=== PATIENT | male | born 1990 | race Caucasian/White ===

== ENCOUNTER 2025-01-16 17:53 | Emergency (ER) | payer BC, SELFPAY ==
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
--- OUTSIDE RECORDS SUMMARY | 2025-01-16 17:56 | XMS_ITS | Clinical Summary ---
Author Organization [facility] [place] [address] [facility] lto Address [address] [place] [address] Care Team Providers Care Business Objects Developer Name Role Phone Jeramie Paredes MD Primary Care Provider [phone] Allergies No known active allergies Medications acetaminophen (TYLENOL) 325 mg tablet take 1 tablet by oral route every 12 hours as needed 0 0 6 Active Additional Information Patient not taking.Reported on 08/03/2024 albuterol HFA (ProAir HFA) 90 mcg/actuation inhaler Inhale 2 puffs every 4 (four) hours as needed for wheezing 1 each 6 5 Active escitalopram (LEXAPRO) 5 mg tablet TAKE 1 TABLET(5 MG) BY MOUTH DAILY 30 tablet 1 5 Active Active Problems Problem Noted Date Diagnosed Date Urinary frequency 08/14/2024 Assessment & Plan (08/14/2024 11:09 AM CDT): COurse of doxycycline given recurrent sypmtosm of previously documented STI with fiancee. Lipid screening 08/14/2024 Assessment & Plan (08/14/2024 11:09 AM CDT): Lipid pending and will robin response. Generalized anxiety disorder 08/14/2024 Assessment & Plan (08/14/2024 11:09 AM CDT): Continues on lexapro and will montir erpsonse. Reviewed sleep pattern and will continue to follow response. Annual physical exam 08/14/2024 Assessment & Plan (08/14/2024 11:10 AM CDT): Focus of exam si prevnetative in nature. Reviwed and remains very active. Reviewed sun/skin cancer screening. Reviewed colon/prostate. No early indications. Congrautalte on aerobci fitness at the highest levels and will montiro respnose. Urethritis 08/14/2024 Assessment & Plan (08/14/2024 11:11 AM CDT): See discussdion as above. Repeat doxycycline and urinalysis ordered. DEnies any sores/l.esions. Achilles tendinosis of right lower extremity Exercise-induced asthma 06/08/2009 Overview (09/12/2016): Exercise induced asthma Assessment & Plan (08/14/2024 11:09 AM CDT): PRn use of albuterol inhaler and will montior erspnose. Immunizations Immunization Administration Dates Next Due Influenza, Quadrivalent, Spl it, Preservative Free, Intramuscular 03/21/2017 Influenza, Trivalent, IM (MDV) 04/10/2013 Influenza, Unspecified 07/28/2023(Deferr ed: Patient Refused),02/06/2023(Deferred: Patient Refused),03/08/2017,06/08/2016(Deferre d: Patient decision),06/08/2016(Deferred: Patient Refused) Tdap 06/08/2008 Surgical History Surgery Date Site/Laterality Comments TONSILLECTOMY Tonsillectomy Medical History Medical History Date Comments Hx Other Medical insomnia; Comme nts: GILDA 07/09/2015 - Hx Other Medical vasal vagal epi sodes; Comments: GILDA 07/09/2015 - Exercise-induced asthma 2009 Asthma, exercise-induced; Comments: GILDA 07/09/2015 - Family History Medical History Relation Name Comments Other Father Alive and well; Thyroid disease Mother Thyroid diso rder; JOY 07/09/2015 -fabrice Diabetes type I Sister Diabetes marty litus type 1; Relation Name Status Comments Father Alive Mother Sister Social History Tobacco Use Types Packs/Day Years Used Date Smoking Tobacco: Never Smokeless Tobacco: Never Alcohol Use Standard Drinks/Week Comments No 0 (1 standard drink = 0.6 oz pur e alcohol) PHQ-2 Answer Date Recorded PHQ-2 Total Score (If total score is 3 or more points, staff should administer the PHQ-9) 3 08/03/2024 Sex and Gender Information Value Date Recorded Sex Assigned at Not on file 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 Gender Identity Not on file Sexual Orientation Not on file Obstetrics History Last Filed Vital Signs Vital Sign Reading Time Taken Comments Blood Pressure 130/82 08/03/2024 8:06 AM MEDICAL CLERICAL ASSISTANT Pulse 53 08/03/2024 8:06 AM MEDICAL CLERICAL ASSISTANT Temperature 36.4 C (97.5 F) 08/03/2024 8:06 AM MEDICAL CLERICAL ASSISTANT Respiratory Rate 18 08/03/2024 8:06 AM MEDICAL CLERICAL ASSISTANT Oxygen Saturation 99% 08/03/2024 8:06 AM MEDICAL CLERICAL ASSISTANT room air Inhaled Oxygen Concentration - - Weight 60.3 kg (133 lb) 08/03/2024 8:06 AM MEDICAL CLERICAL ASSISTANT Height 165.1 cm (5' 5) 08/03/2024 8:06 AM MEDICAL CLERICAL ASSISTANT Body Mass Index 22.13 08/03/2024 8:06 AM MEDICAL CLERICAL ASSISTANT Plan of Treatment Health Maintenance Due Date Last Done Comments Hepatitis C Screening 1992 Varicella Vaccines (1 of 2 - 13+ 2-dose series) 2005 Hepatitis B Screening 2010 Pneumococcal vaccine <65 (1 of 2 - PCV) 12/24/2011 DTaP/Tdap/Td Vaccine (2 - Td or Tdap) 06/08/201806/2008 HPV Vaccines (1 - 3-dose SCDM series) 12/24/2019 Covid-19 Vaccine ( season) 2024 06/23/2021, 08/25/2020, 07/28/2020 Influenza Vaccine (#1) 2025 7, 03/08/2017, 04/10/2013 Depression Screening 08/03/2025 08/03/2024, 07/28/2023, 04/23/2017 Regular Well Visit/Exam 18-64 08/03/2025 08/03/2024 [place] [employer] [place] Care Teams Business Objects Developer Relationship Specialty Start Date End Date Jeramie Paredes MD [address] [place] [address] PCP - General 09/05/16
[2025-01-16 18:00] VITALS: BP 119/76; PULSE 62; RESP 20; TEMP 36.7; O2SAT 100
[2025-01-16] MEDS: TETANUS,DIPHTHERIA,AC PERTUSSIS ADULT (0.5 ML) BOOSTRIX IM (18:16)
== END 2025-01-16 19:14 | disposition home or self-care (01) ==
PROVIDERS: Emergency Provider Nurse Practitioner; PCP Family Medicine
DX: S62.511A Displaced fracture of proximal phalanx of right thumb, initial encounter for closed fracture (principal); S61.011A Laceration without foreign body of right thumb without damage to nail, initial encounter; W20.8XXA Other cause of strike by thrown, projected or falling object, initial encounter; Z23 Encounter for immunization; F41.9 Anxiety disorder, unspecified
CPT/HCPCS: 12002; 73140; 90471; 90715; 99203; G0463; J2003

== ENCOUNTER 2025-01-31 11:49 | Outpatient (CLI) | payer BC, SELFPAY ==
--- NOTE | ~2025-01-31 | XR_ITS ---
EXAMINATION: XR finger 1st RT min 2V DATE: 01/31/2025 12:13 INDICATION: Follow-up fracture TECHNIQUE: 3 images of the right first digit were obtained. COMPARISON: 01/16/2025 FINDINGS: Grossly stable comminuted minimally displaced fracture of the proximal phalanx of the first digit with overlying soft tissue swelling. No other fracture identified. IMPRESSION: 1. Grossly stable comminuted minimally displaced fracture of the proximal phalanx of the first digit with overlying soft tissue swelling. 2. No other fracture identified. Reviewed, dictated and finalized at location Q. IMPRESSION: 1. Grossly stable comminuted minimally displaced fracture of the proximal phala nx of the first digit with overlying soft tissue swelling. 2. No other fracture identified.
--- OUTSIDE RECORDS SUMMARY | 2025-01-31 12:02 | XMS_ITS | Clinical Summary ---
Author Organization [facility] [place] [address] [facility] lto Address [address] [place] [address] Care Team Providers Care Clinical Specialist Name Role Phone Jeramie Paredes MD Primary Care Provider [phone] Allergies No known active allergies Medications acetaminophen [...] of albuterol inhaler and will montior erspnose. 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 Gender Identity Not on file Sexual Orientation Not on file Obstetrics History Last Filed Vital Signs Vital Sign Reading Time Taken Comments Blood Pressure 130/82 08/03/2024 8:06 AM WEBSPHERE MESSAGE BROKER DEVELOPER Pulse 53 08/03/2024 8:06 AM WEBSPHERE MESSAGE BROKER DEVELOPER Temperature 36.4 C (97.5 F) 08/03/2024 8:06 AM WEBSPHERE MESSAGE BROKER DEVELOPER Respiratory Rate 18 08/03/2024 8:06 AM WEBSPHERE MESSAGE BROKER DEVELOPER Oxygen Saturation 99% 08/03/2024 8:06 AM WEBSPHERE MESSAGE BROKER DEVELOPER room air Inhaled Oxygen Concentration - - Weight 60.3 kg (133 lb) 08/03/2024 8:06 AM WEBSPHERE MESSAGE BROKER DEVELOPER Height 165.1 cm (5' 5) 08/03/2024 8:06 AM WEBSPHERE MESSAGE BROKER DEVELOPER Body Mass Index 22.13 08/03/2024 8:06 AM WEBSPHERE MESSAGE BROKER DEVELOPER Plan of Treatment Health Maintenance Due Date Last Done Comments Hepatitis C Screening 1992 Varicella Vaccines (1 of 2 - 13+ 2-dose series) 2005 Hepatitis B Screening 2010 Pneumococcal vaccine <65 (1 of 2 - PCV) 12/24/2011 HPV Vaccines (1 - 3-dose SCDM series) 12/24/2019 Covid-19 Vaccine (2023- season) 2024 06/23/2021, 08/25/2020, 07/28/2020 Influenza Vaccine (#1) 2025 7, 03/08/2017, 04/10/2013 Depression Screening 08/03/2025 08/03/2024, 07/28/2023, 04/23/2017 Regular Well Visit/Exam 18-64 08/03/2025 08/03/2024 DTaP/Tdap/Td Vaccine (3 - Td or Tdap) 01/16/203504/2025, 06/08/2008 Procedures Procedure Name Priority Date/Time Associated Diagnosis Comments SCAN - RADIOLOGY/IMAGING 01/16/2025 from Last 3 Months Results * SCAN - RADIOLOGY/IMAGING (01/16/2025) Anatomical Region Laterality Modality Other us Provider Scanning Final Result from Last 3 Months Insurance [employer] [place] [employer] [place] [facility] Care Teams Clinical Specialist Relationship Specialty Start Date End Date Jeramie Paredes MD [address] [place] [id number] PCP - General 09/05/16
== END 2025-01-31 11:50 | disposition home or self-care (01) ==
PROVIDERS: PCP Family Medicine; Visit Provider Physician Assistant Surgical
DX: S62.514B Nondisplaced fracture of proximal phalanx of right thumb, initial encounter for open fracture (principal); X58.XXXA Exposure to other specified factors, initial encounter
CPT/HCPCS: 73140